=== PATIENT | male | born 1955 | race Caucasian/White ===

== ENCOUNTER → 2016-11-16 | Outpatient (CLI) | payer BC ==
[~2016-11-16] MED LIST: AMLO-110 PO; ATOR10TA82 PO; HYG/25 PO
[2016-11-16 13:54] LABS: BLOOD UREA NITROGEN 14 mg/dl (7-18); BUN/CREATININE RATIO 13.7 (10-20); CARBON DIOXIDE 27 mmol/L (21-32); CHLORIDE 101 mmol/L (98-107); GLUCOSE 94 mg/dl (70-99); POTASSIUM 3.3 mmol/L (3.5-5.1); SODIUM 138 mmol/L (136-145)
[2016-11-16 13:55] LABS: CALCIUM 9.4 mg/dl (8.5-10.1)
== END | disposition home or self-care (01) ==
LOC: C.LAB 12:16
PROVIDERS: ATTEND Internal Medicine Geriatric Medicine
DX: I10 Essential (primary) hypertension (principal)

== ENCOUNTER → 2017-02-04 | Outpatient (CLI) | payer BC ==
[~2017-02-04] MED LIST changes: -ATOR10TA82 PO; +ATOR10TA88 PO
[2017-02-04 10:13] LABS: BLOOD UREA NITROGEN 20 mg/dl (7-18); CALCIUM 9.4 mg/dl (8.5-10.1); CARBON DIOXIDE 33 mmol/L (21-32); CHLORIDE 100 mmol/L (98-107); GLUCOSE 109 mg/dl (70-99); POTASSIUM 3.5 mmol/L (3.5-5.1); SODIUM 137 mmol/L (136-145)
[2017-02-04 10:17] LABS: CHOLESTEROL 256 mg/dl (0-200); CHOLESTEROL/HDL RATIO 4.3; HDL CHOLESTEROL 60 mg/dl; LDL CHOLESTEROL CALCULATED 158 mg/dl; TRIGLYCERIDES 191 mg/dl (0-150); VERY LOW DENSITY LIPOPROT CALC 38 mg/dl
== END | disposition home or self-care (01) ==
LOC: C.LAB 08:26
PROVIDERS: ATTEND Internal Medicine Geriatric Medicine
DX: I10 Essential (primary) hypertension (principal)

== ENCOUNTER 2017-02-16 18:13 | Emergency (ER) | payer BC ==
[~2017-02-16] VITALS: Ht 180.3 cm; Wt 85.0 kg
[~2017-02-16 18:13] MED LIST changes: -ATOR10TA88 PO; -HYG/25 PO
[2017-02-16 18:14] VITALS: TEMP 37.3; Ht 180.3 cm; Wt 85.0 kg
[2017-02-16] MEDS ORDERED: HYG/25 PO (18:39)
[2017-02-16] MEDS ORDERED: ATOR10TA88 PO (18:39)
[2017-02-16] MEDS ORDERED: IBUPROFEN 800 MG TAB ONE (18:47)
--- NOTE | 2017-02-16 19:29 | DIAGNOSTIC IMAGING REPORT ---
RIGHT KNEE 3 VIEWS CLINICAL HISTORY: right knee injury Right trauma. Pain. COMPARISON: None. DISCUSSION: The bones and joint spaces appear intact. There is no evidence of fracture, dislocation or bony disease. There is no evidence for soft tissue swelling. IMPRESSION: Negative study. The above report was generated using voice recognition software. It may contain grammatical, syntax or spelling errors. Electronically signed by: Galen Mojica M.D. 02/16/2017 7:28 PM Dictated Date/Time: 02/16/2017 7:27 PM
--- NOTE | 2017-02-16 20:19 | EMERGENCY ROOM VISIT NOTE ---
ED Visit Note First contact with patient: 18:26 CHIEF COMPLAINT: Knee pain HISTORY OF PRESENT ILLNESS: This 61-year-old male patient presents to the emergency department the [facility] complaining of right knee pain. The patient states that he was playing squash and went to take a shot, when he heard a loud pop in his right knee. He states that he collapsed and has not been able to bear weight on the knee since then. He rates his discomfort a 2/10 at rest. He denies twisting or planting onto the knee when the pop occurred. He denies any swelling or bruising. He denies numbness or tingling. The patient denies any previous knee problems. REVIEW OF SYSTEMS: A 6 system review of systems was completed with positives and pertinent negatives listed in the HPI. ALLERGIES: Morphine MEDICATIONS: Lipitor, [place]groton PMH: No significant past medical history. SOCIAL HISTORY: The patient lives with family. Nonsmoker. PHYSICAL EXAM: Vital Signs: Reviewed Nurse's notes, vital signs stable. GENERAL : This is a 61-year-old male, no acute distress, but appears in pain, well- developed, well-nourished. MENTAL STATUS: Alert, oriented to person place and time, and cooperative. MUSCULOSKELETAL: The right knee is not swollen. There is no ecchymosis. There is no joint effusion present. The patient is mildly tender along the medial aspect of the knee. The patella does not subluxate. Range of motion is full. Strength of the quads and hamstrings is 5/5. Tate's is negative. Kaitlin's and Anterior Drawer tests are negative. There is no laxity with varus and valgus stressing. The foot and toes are warm and well- perfused. Dorsalis pedis pulse 2+. Sensation to pain and light touch is intact. Capillary refill less than 2 seconds. RADIOGRAPHIC FINDINGS: RIGHT KNEE 3 VIEWS CLINICAL HISTORY: right knee injury Right trauma. Pain. COMPARISON: None. DISCUSSION: The bones and joint spaces appear intact. There is no evidence of fracture, dislocation or bony disease. There is no evidence for soft tissue swelling. IMPRESSION: Negative study. EMERGENCY DEPARTMENT COURSE: I examined the patient. X-rays of the right knee were reviewed by myself and read by radiology and reveal no acute findings. There is no significant edema or bruising on exam. The patient does not have an effusion. He may have a sprain of the MCL or medial meniscal injury. He was given information for orthopedic follow-up and placed in an Reji wrap and given crutches. Conservative measures including ice, elevation and anti- inflammatories were discussed with the patient. The patient verbalized understanding of my assessment and treatment plan. The patient was discharged home in good condition. DIAGNOSIS: Right knee injury Current/Historical Medications Scheduled Atorvastatin (Lipitor), 10 MG PO DAILY Chlorthalidone (Hygroton), 25 MG PO DAILY Allergies Coded Allergies: Morphine (Verified Adverse Reaction, Intermediate, hallucinations, 03/02/16 ) Vital Signs Date Time Temp Pulse Resp B/P (MAP) Pulse Ox O2 Delivery O2 Flow Rate FiO2 02/16/17 20:33 72 16 141/101 98 Room Air 02/16/17 18:14 37.3 73 18 151/97 98 Room Air Medications Administered Medications (Trade) Dose Ordered Sig/Jeimy Route Start Time Stop Time Status Last Admin Dose Admin Ibuprofen (Motrin Tab) 800 mg STK-MED ONCE .ROUTE 02/16/17 18:47 02/16/17 18:48 DC 02/16/17 18:49 800 MG Departure Information Impression Primary Impression: Knee injury Dispostion Home / Self-Care Condition GOOD Referrals Efren Martínez M.D. (PCP) Patient Instructions My [facility] Additional Instructions You have been treated in the Emergency Department for Knee Pain. For pain control, you can use the following [id number] medicines (if >12 yo): - Regular strength (325mg/tab) Tylenol (acetaminophen) 2 tabs every 4-6 hours as needed. Do not exceed 12 tablets in a 24 hour period. Avoid taking more than 4 grams (4000 mg) of Tylenol per day. This includes any other sources of acetaminophen you may take on a regular basis. - Regular strength (200 mg/tab) Advil (ibuprofen) 1-2 tabs every 4-6 hours as needed. Do not exceed a dose of 3200 mg per day. If this is a recent injury (<24 hrs), ice can be applied to the area of pain for the first 3 days to help decrease pain and inflammation. Ice massages can be performed by freezing water in a paper cup, peeling back the cup to expose the ice and then massaging over the affected area. You have been provided the number for an Orthopaedic Surgeon. You should call this number as soon as possible to establish a follow-up visit from today's Emergency Department visit. Wear the Reji wrap and use the crutches until you are able to bear weight without any pain. Return to the Emergency Department if your current symptoms worsen despite treatment course outlined above. Problem Qualifiers Primary Impression: Knee injury Encounter type: initial encounter Laterality: right Qualified Codes: S89.91XA - Unspecified injury of right lower leg, initial encounter
[2017-02-16 20:33] VITALS: BP 141/101; PULSE 72; O2SAT 98
== END 2017-02-16 20:33 | disposition home or self-care (01) ==
LOC: EDBD 18:13 → C.EDD 18:14
DX: S89.91XA Unspecified injury of right lower leg, initial encounter (principal); X50.9XXA Other and unspecified overexertion or strenuous movements or postures, initial encounter

== ENCOUNTER → 2017-02-18 | Outpatient (CLI) | payer BC ==
[~2017-02-18] MED LIST changes: -AMLO-110 PO; +ATOR10TA88 PO; +HYG/25 PO
--- NOTE | 2017-02-18 12:32 | DIAGNOSTIC IMAGING REPORT ---
RIGHT KNEE MRI HISTORY: Right knee pain. COMPARISON STUDY: Right knee 02/16/2017. TECHNIQUE: Multiplanar multisequence MRI of the right knee was performed according to standard department protocol without the use of contrast. FINDINGS: Menisci: Truncated appearance to the body and posterior horn of the lateral meniscus consistent with radial tears. No evidence for medial meniscus tear. Ligaments: Full-thickness ACL tear. There is a wavy appearance to the MCL. This is likely completely torn at its distal tibial attachment. However, this is incompletely imaged on this study. The LCL and PCL are intact. Extensor mechanism: The quadriceps tendon and patellar ligament are intact. Articular cartilage and bone: No acute fracture dislocation. Small bone contusions along the posterior aspect of the medial and lateral tibial plateaus. Scattered areas of subchondral marrow edema within the patellofemoral joint with mild to moderate cartilage space narrowing at the patellofemoral joint. There is also mild cartilage thinning within the medial femoral condyle and medial tibial plateau. Mild cartilage fraying within the lateral compartment of the knee. Joint effusion: Small. Soft tissues: Small popliteal cyst. Extensive subcutaneous and deep soft tissue edema throughout the knee most pronounced medially. A few small intra-articular loose bodies within the suprapatellar space. IMPRESSION: 1. Full-thickness ACL tear. 2. Radial tears within the body and posterior horn of the lateral meniscus. 3. There is a wavy appearance to the MCL. This is likely completely torn at its distal tibial attachment. However, this is incompletely imaged on this study. 4. Additional findings as described above. Electronically signed by: Ronaldo Nieves M.D. 02/18/2017 12:31 PM Dictated Date/Time: 02/18/2017 12:19 PM
== END | disposition home or self-care (01) ==
LOC: C.MRI 11:12
PROVIDERS: ATTEND Internal Medicine
DX: M25.561 Pain in right knee (principal)

== ENCOUNTER → 2017-05-11 | Outpatient (CLI) | payer BC ==
[~2017-05-11] MED LIST changes: +ATOR10TA82 PO; -ATOR10TA88 PO
[2017-05-11 14:16] LABS: HEMATOCRIT 45.7 % (42-52); MEAN CELL VOLUME 91.2 fL (80-100); MEAN CORPUSCULAR HEMOGLOBIN 31.9 pg (25-34); MEAN PLATELET VOLUME 9.6 fL (7.4-10.4); PLATELET COUNT 232 K/uL (130-400); RED BLOOD COUNT 5.01 M/uL (4.7-6.1); WHITE BLOOD COUNT 7.24 K/uL (4.8-10.8)
[2017-05-11 14:40] LABS: BLOOD UREA NITROGEN 14 mg/dl (7-18); BUN/CREATININE RATIO 13.5 (10-20); CALCIUM 9.6 mg/dl (8.5-10.1); CARBON DIOXIDE 31 mmol/L (21-32); CHLORIDE 101 mmol/L (98-107); CREATININE 1.04 mg/dl (0.60-1.40); GLUCOSE 98 mg/dl (70-99); POTASSIUM 3.7 mmol/L (3.5-5.1); SODIUM 136 mmol/L (136-145)
== END | disposition home or self-care (01) ==
LOC: C.LABBC 09:52
PROVIDERS: ATTEND Physician Assistant
DX: Z01.818 Encounter for other preprocedural examination (principal); S83.511D Sprain of anterior cruciate ligament of right knee, subsequent encounter; X58.XXXD Exposure to other specified factors, subsequent encounter

== ENCOUNTER → 2017-06-10 | Day surgery (SDC) | payer BC, OTHER ==
[2017-05-05 11:34] VITALS: Ht 180.3 cm; Wt 84.1 kg
[~2017-06-10] VITALS: Ht 180.3 cm; Wt 84.1 kg
[~2017-06-10] MED LIST changes: +ATROPINE SULFATE 0.1 MG/ML 5ML SYR IV PRN; +BUPIVACAINE 0.5 % 5 MG/1 ML PF 10ML VIAL ONE; +CEFAZOLIN 2000MG IV PUSH 10 ML IV SCH; +DEXAMETHASONE SOD INJ 4 MG/ML VIAL ONE; +EpHEDrine SULFATE INJ 50 MG/ML AMP IV PRN; +EpINEphrine HCL INJ 1 MG/ML 5ML SYRINGE ONE; +FENTANYL CITRATE INJ 50 MCG/1 ML 2 ML VIAL ONE; +KETOROLAC TROMETHAMINE 30 MG/ML VIAL ONE; +LACTATED RINGER'S 1000ML 1,000 ML IV SCH; +LIDOCAINE HCL 2% 2 ML VIAL (20MG/ML) ONE; +LIDOCAINE/EPINEPHRINE 1% 20 ML VIAL ONE; +MIDAZOLAM HCL 1 MG/ML 2ML VIAL ONE; +ONDANSETRON INJ 2 MG/ML 2 ML VIAL IV PRN; +ONDANSETRON INJ 2 MG/ML 2 ML VIAL ONE; +OXYCODONE/ACETAMINOPHEN 5-325 TAB PO PRN; +PROPOFOL IV EMULSION 10 MG/ML 20 ML VIAL IV ONE; +ROPIVACAINE 0.5% 5 MG/ML 30 ML VIAL ONE
--- NOTE | 2017-06-10 06:35 | History & Physical Bridge - SC ---
H&P Re-Evaluation Bridge Note: I have examined the patient, reviewed the History & Physical and in the interval since the performance of the History & Physical I have noted the following changes of clinical significance: No changes noted
--- NOTE | 2017-06-10 09:28 | Discharge Instructions-SurgCtr ---
Discharge Instructions Date of Service Jun 10, 2017. Visit Reason for Visit: Right Knee Acl Tear Discharge Discharge Diagnosis / Problem: Status post Right knee ACL reconstruction Discharge Goals Goal(s): Decrease discomfort, Improve function, Increase independence Activity Recommendations Activity Limitations: per Instructions/Follow-up section May Resume Sexual Activity: when tolerated Shower/Bathe: may shower/bathe in 3 days Driving or Machine Use: Not while on Narcotics or in brace Weightbearing Status: Right non-weightbearing (for 24 hrs, then as tolerated with brace locked in extension) Anesthesia . Post Anesthesia Instructions: If you have had General Anesthesia or IV Sedation: * Do not drive today. * Resume driving when surgeon permits. * Do not make important decisions or sign legal documents today. * Call surgeon for: 1. Temperature elevations greater than 101 degrees F. 2. Uncontrollable pain. 3. Excessive bleeding. 4. Persistent nausea and vomiting. 5. Medication intolerance (nausea, vomiting or rash). * For nausea and vomiting use only clear liquids such as: tea, soda, bouillon until nausea subsides, then gradually increase diet as tolerated. * If you have any concerns or questions, call your surgeon's office. If physician is unavailable and it is an emergency, call 911 or go to the nearest emergency room. . Instructions / Follow-Up Instructions / Follow-Up Dr. Luna in 10-15 days. PT in 3-5 days. Diet Recommendations Home Diet: resume previous diet Procedures Procedures Performed: Right Knee Arthroscopic Meniscal Debridement Chondroplasty, Exam Under Anesthesia, Anterior Cruciate Ligament Reconstruction With Allograft, Loose body removal. Pending Studies Studies pending at discharge: no Medical Emergencies . Who to Call and When: Medical Emergencies: If at any time you feel your situation is an emergency, please call 911 immediately. . Non-Emergent Contact Non-Emergency issues call your: Surgeon Call Non-Emergent contact if: temperature is above 101.5, your pain is not controlled, wound has increased drainage, wound has increased redness . . "Provider Documentation" section prepared by Soy Luna. .
--- NOTE | 2017-06-10 09:31 | [facility] Operative Report ---
Operative Report Operative Date Jun 10, 2017. Pre-Operative Diagnosis Right Knee Anterior Ligament Tear with Lateral Meniscus Tear Post-Operative Diagnosis Same, with Chondromalacia, Loose Bodies Procedure(s) Performed 1) Right Knee Arthroscopic Anterior Cruciate Ligament Reconstruction w/ Allograft. 2) Chondroplasty Trochlea & MFC. 3) Loose body removal. 4) Partial Lateral Menisectomy. 5) Exam Under Anesthesia. Loose body removal. Surgeon Dr. Barak Luna Toxicologist Surgeon(s) Dr. James Malloy Estimated Blood Loss 5 cc Findings Examination Under Anesthesia: Range of motion was 0-120. Ligamentous examination exhibited: Kaitlin testing with 6 mm of anterior translation and soft endpoint, and a + pivot-shift. Stable: posterior drawer, varus and valgus stress testing at zero and 30. ARTHROSCOPIC FINDINGS: 1) PATELLOFEMORAL JOINT: There were Outerbridge grade 2 changes diffusely about the trochlea, and grade 1-2 changes on the patella. 2) GUTTERS: There were loose bodies noted in both the medial and lateral gutters. 3) MEDIAL COMPARTMENT: The articular cartilage of the tibia was intact. There was a small area at approximately 70 of flexion on the femoral condyle that had Outerbridge type II changes. The medial meniscus was intact. 4) ACL/PCL: There was an obvious tear of the anterior cruciate ligament. PCL was intact. 5) LATERAL COMPARTMENT: The lateral compartment was then entered in a figure-of- four position. The femoral/tibial cartilage was normal. The lateral meniscus had a complex tear with longitudinal component posteriorly, and a parrot beak tear at the posterior horn. Fluids (cc crystalloids) 1300 Specimens None Drains n/a Anesthesia LMA + Adductor Canal Block Complication(s) None Disposition Recovery Room / PACU (Stable) Implants 1. 10.5 x 65 mm Graftlink allograft with Femoral Fixation with ACL Tightrope RT (Arthrex). 2. Tibial Fixation with ABS Tightrope with ABS button (Arthrex). Indications This is a 61-year-old active male who tore their right ACL tear and lateral meniscus tear. After a lengthy discussion with the patient regarding his options of conservative versus surgical intervention he wished to proceed with right knee anterior cruciate ligament reconstruction be performed to allow the patient to return to cutting/pivoting activities. The patient understands the rehabilitation process as well as the risks of surgery, which include bleeding, infection, re-operation, damage to nerves and arteries, continued knee pain, or regression of arthritis, arthrofibrosis (knee stiffness), failure of the graft, failure of the hardware, and the potential that the patient may not return to their previous level of activity, and deep vein thrombosis. The patient understands all of these instructions and explanations, all of their questions have been satisfactorily addressed and the patient has elected to proceed. Informed consent was signed. Description of Procedure The patient was taken to the Operating Room and placed in the supine position after Adductor nerve block and general anesthetic was administered. The surgeon initials and a multidisciplinary time-out were used to identify the right leg as the correct operative limb. Prior to the incision, 2 grams of intravenous Ancef were given. The right leg was then prepped and draped in a standard sterile fashion. The anterolateral, anteromedial, and superolateral portals were injected with the 50:50 mixture of 1% Lidocaine with epinephrine and 0.5% Bupivacaine plain, for a total of 10cc, in the standard fashion. An anterolateral arthroscopic portal was established with 11-blade. Next, the arthroscope was introduced into the knee. The anteromedial portal was established under direct visualization using a spinal needle followed by an 11 blade in the standard fashion. The above findings were observed during the diagnostic arthroscopy. Graft Preparation: The graft link, quadrupled allograft with ACL Tightrope was thawed in the standard fashion. An ABS Tightrope was placed through the opposite and in the standard fashion. The graft was tensioned at 15 psi on the back table, and covered in a moist sponge until it was used. The graft was found to fit through an 10 mm sizer, for the femoral side and a 10 mm sizer on the tibial side. The graft length was 70 mm. After completing the diagnostic arthroscopy, the loose body was removed as it was encountered. The lateral meniscus tear was debrided back to a stable margin with hand punches and a mechanical shaver. The loose articular cartilage on the trochlea and medial femoral condyle were also debrided back to a stable margin with mechanical shaver. The right knee was then flexed to 90 degrees and a bump was placed underneath the posterior thigh. With the knee flexed in a 90-degree position, my attention was then focused on excising the remnants of the anterior cruciate ligament with a 5.0 mm shaver and Coolcut. A small notchplasty was performed to visualize the back wall. The Tibial drill guide was then brought into the knee and set on 60 degrees. A 10 mm Flipcutter was then introduced from the anteromedial tibia into the intra-articular position in the center of the ACL footprint even with the anterior horn of lateral meniscus and 8 mm anterior to the PCL. The tunnel was created to a depth of 40 mm. A Tigerstick was introduced through the tibial tunnel and retrieved through the anteromedial portal. The arthroscope was switch to the anteromedial portal and the Flipcutter aiming guide was placed at the 10 Oclock position with 6 mm from the over the top position, with 108 degrees. The lateral aspect of the femur was marked and a small 1.5 cm incision was made to place the aiming guide down to bone. Then the 10 mm Flipcutter was introduced into the knee through the lateral femoral condyle for proper femoral tunnel placement. The Flipcutter was flipped and the tunnel was reamed for a total tunnel length of 35 mm. There was 1 mm thick back wall. A Fiberstick suture was then used and shuttled in through the femoral tunnel and then out the anteromedial portal, along with the Tigerstick to pass the graft, insuring that there was no soft tissue bridge. The graft was then introduced intra-articularly through the anteromedial portal. The graft was then seated in an anatomic position along the femur. Fixation was accomplished on the femoral side with an ACL Tightrope RT. The graft was then introduced into the tibial tunnel and an ABS button was placed. Next, the graft was taken into full extension. There was no impingement. The graft entered the knee approximately 1 mm at 10 degrees of flexion. The arthroscopic instruments were then removed. The graft was then cycled and fixed to the knee in 0 degrees flexion with ABS Tightrope and button on the tibial side in the standard fashion. Kaitlin and pivot shift were then tested and were negative. The knee had full range of motion. The subcutaneous tissue was closed with 3-0 Vicryl. The skin was closed with a 4-0 Monocryl in a standard running fashion and Dermabond. Once the Dermabond had dried, Steri-Strips were placed over top. The wounds were dressed sterile gauze, ABDs, sterile Webril, and a foot to thigh Reji bandage. An Iceman device and T-ROM hinged knee brace were applied. The patient was then transferred to the Recovery Room in stable condition. Post-op Instructions: The patient will be weight bearing as tolerated with his brace locked in extension for the next 2 weeks. The patient may remove the operative dressing on Post-Op Day #2 and apply Band-Aids to the portal wounds and cover their anterior incision with gauze as needed. The patient may shower in 72 hours and is to wear the ALVARADO for 2 weeks on their operative limb. The patient is to use the pain medicine as needed and take the ASA for 3 weeks. The patient is to start PT post-operative day 2. The patient was also given a handout for home quad strengthening and seated self-assisted ROM exercises, which they may begin tomorrow. The patient is to follow up with me in 10-15 days. I attest to the content of the Intraoperative Record and any orders documented therein. Any exceptions are noted below.
[2017-06-10] MEDS: FENTANYL CITRATE INJ 50 MCG/1 ML 2 ML VIAL IV PRN ×2 (10:12→10:25)
[2017-06-10 10:46] VITALS: TEMP 36.5
--- NOTE | 2017-06-10 11:17 | Anesthesia Progress Nt - [facility] ---
Anesthesia Post Op Note Date & Time Jun 10, 2017 at 11:16 Vital Signs Pain Intensity: 4.0 Vital Signs Past 12 Hours Date Time Temp Pulse Resp B/P (MAP) Pulse Ox O2 Delivery O2 Flow Rate FiO2 06/10/17 10:46 36.5 77 16 149/89 (109) 97 Room Air 06/10/17 10:36 161/85 06/10/17 10:34 82 15 06/10/17 10:34 79 15 94 06/10/17 10:33 79 13 94 06/10/17 10:33 37.0 94 Room Air 06/10/17 10:33 79 13 06/10/17 10:31 151/99 06/10/17 10:28 82 19 96 06/10/17 10:28 81 19 06/10/17 10:27 77 14 06/10/17 10:27 76 14 90 06/10/17 10:26 160/97 06/10/17 10:25 183/95 06/10/17 10:22 77 15 06/10/17 10:22 75 15 97 06/10/17 10:21 163/104 06/10/17 10:18 169/99 06/10/17 10:17 82 16 06/10/17 10:17 81 16 95 06/10/17 10:16 176/77 06/10/17 10:12 76 17 06/10/17 10:12 76 17 98 06/10/17 10:11 155/94 06/10/17 10:07 74 16 06/10/17 10:07 74 16 100 06/10/17 10:06 157/88 06/10/17 10:02 68 14 06/10/17 10:02 68 14 99 06/10/17 10:01 169/92 06/10/17 09:57 74 13 06/10/17 09:57 75 13 98 06/10/17 09:56 69 18 06/10/17 09:56 68 18 157/96 99 06/10/17 09:51 71 13 160/92 99 06/10/17 09:51 71 13 06/10/17 09:50 158/99 06/10/17 09:49 36.4 79 12 158/99 99 Mask 7 06/10/17 07:05 0 06/10/17 07:01 126/78 06/10/17 07:00 64 06/10/17 07:00 65 33 98 06/10/17 06:56 121/78 06/10/17 06:55 67 17 98 06/10/17 06:55 65 06/10/17 06:51 115/59 06/10/17 06:50 65 21 99 06/10/17 06:50 65 06/10/17 06:48 155/94 06/10/17 06:45 65 06/10/17 06:45 65 42 96 06/10/17 06:40 0 06/10/17 06:23 36.4 72 16 143/94 (110) 95 Room Air Notes Mental Status: alert / awake / arousable, participated in evaluation Pt Amnestic to Procedure: Yes Nausea / Vomiting: adequately controlled Pain: adequately controlled Airway Patency, RR, SpO2: stable & adequate BP & HR: stable & adequate Hydration State: stable & adequate Anesthetic Complications: no major complications apparent
[2017-06-10 11:21] VITALS: BP 137/85; PULSE 82; O2SAT 97
== END | disposition home or self-care (01) ==
LOC: X.SURG 06:13
PROVIDERS: ATTEND Orthopaedic Surgery Sports Medicine
DX: M23.261 Derangement of other lateral meniscus due to old tear or injury, right knee (principal); M23.51 Chronic instability of knee, right knee; I10 Essential (primary) hypertension; E78.5 Hyperlipidemia, unspecified

== ENCOUNTER → 2017-06-23 | Outpatient (CLI) | payer OTHER ==
[~2017-06-23] MED LIST changes: -ATROPINE SULFATE 0.1 MG/ML 5ML SYR IV PRN; -BUPIVACAINE 0.5 % 5 MG/1 ML PF 10ML VIAL ONE; -CEFAZOLIN 2000MG IV PUSH 10 ML IV SCH; -DEXAMETHASONE SOD INJ 4 MG/ML VIAL ONE; -EpHEDrine SULFATE INJ 50 MG/ML AMP IV PRN; -EpINEphrine HCL INJ 1 MG/ML 5ML SYRINGE ONE; -FENTANYL CITRATE INJ 50 MCG/1 ML 2 ML VIAL ONE; -KETOROLAC TROMETHAMINE 30 MG/ML VIAL ONE; -LACTATED RINGER'S 1000ML 1,000 ML IV SCH; -LIDOCAINE HCL 2% 2 ML VIAL (20MG/ML) ONE; -LIDOCAINE/EPINEPHRINE 1% 20 ML VIAL ONE; -MIDAZOLAM HCL 1 MG/ML 2ML VIAL ONE; -ONDANSETRON INJ 2 MG/ML 2 ML VIAL IV PRN; -ONDANSETRON INJ 2 MG/ML 2 ML VIAL ONE; -OXYCODONE/ACETAMINOPHEN 5-325 TAB PO PRN; -PROPOFOL IV EMULSION 10 MG/ML 20 ML VIAL IV ONE; -ROPIVACAINE 0.5% 5 MG/ML 30 ML VIAL ONE
== END | disposition home or self-care (01) ==
LOC: C.RDSM 10:48
PROVIDERS: ATTEND Orthopaedic Surgery Sports Medicine
DX: S83.511D Sprain of anterior cruciate ligament of right knee, subsequent encounter (principal); X58.XXXD Exposure to other specified factors, subsequent encounter

== ENCOUNTER → 2017-08-18 | Outpatient (CLI) | payer OTHER ==
[2017-08-18 10:20] LABS: ALBUMIN 4.2 gm/dl (3.4-5.0); ALT/SGPT 72 U/L (12-78); BLOOD UREA NITROGEN 20 mg/dl (7-18); CALCIUM 9.6 mg/dl (8.5-10.1); CARBON DIOXIDE 30 mmol/L (21-32); CHOLESTEROL 186 mg/dl (0-200); CREATININE 1.15 mg/dl (0.60-1.40); GLUCOSE 107 mg/dl (70-99); SODIUM 136 mmol/L (136-145)
[2017-08-18 10:30] LABS: ALKALINE PHOSPHATASE 72 U/L (45-117); AST/SGOT 36 U/L (15-37); LDL CHOLESTEROL CALCULATED 113 mg/dl; TOTAL PROTEIN 7.9 gm/dl (6.4-8.2)
== END | disposition home or self-care (01) ==
LOC: C.LAB 07:35
PROVIDERS: ATTEND Internal Medicine Geriatric Medicine
DX: I10 Essential (primary) hypertension (principal); E78.5 Hyperlipidemia, unspecified